=== PATIENT | female | born 1950 | race Caucasian/White ===

== ENCOUNTER 2019-08-20 20:47 | Emergency (ER) | payer MEDICARE ==
--- NOTE | 2019-08-20 21:12 | ER Document Report ---
ED General - General Chief Complaint: Fever Stated Complaint: FEVER, LETHARGY Time Seen by Provider: 08/20/19 21:00 Primary Care Provider: LUCIO ALMEIDA, OCCUPATIONAL THERAPY CO DIRECTOR [Primary Care Provider] - Follow up as needed Notes: Patient is a 68-year-old female that comes emergency department for chief complaint of altered mental status. She comes from home by EMS. EMS reports that normally patient is alert, oriented, conversational, however now she is only answering "yes and no questions" and these are inappropriate as well. Patient has a history of endometrial cancer with liver metastasis and patient has also has a history of ureteral stricture from the mass resulting in hydronephrosis and stents at [facility]. No daily medications are provided, no other medical history is provided, patient is reportedly on chemotherapy but no other medical history is given except that patient had a recorded temperature at home by family of 101 F although she had a normal temperature by EMS. Patient was given 500 cc lactated Ringer bolus by EMS. Patient is unable to give me any meaningful history. Recently filled medications per the system include Lamictal, gabapentin, oxybutynin, Compazine, Zofran. The system also indicates she has had a hysterectomy. TRAVEL OUTSIDE OF THE [place] IN LAST 30 DAYS: No - Related Data Allergies/Adverse Reactions: No Known Allergies Allergy (Verified 03/24/19 09:43) Past Medical History - General Information source: Patient - Social History Smoking Status: Unknown if Ever Smoked Frequency of alcohol use: None Drug Abuse: None Lives with: Family Family History: Reviewed & Not Pertinent Malignancy Medical History: Reports: Other - Endometrial cancer with liver metastasis Past Surgical History: Reports: Hx Hysterectomy Review of Systems - Review of Systems Constitutional: See HPI EENT: No symptoms reported Cardiovascular: No symptoms reported Respiratory: No symptoms reported Gastrointestinal: No symptoms reported Genitourinary: No symptoms reported Female Genitourinary: No symptoms reported Musculoskeletal: No symptoms reported Skin: No symptoms reported Hematologic/Lymphatic: No symptoms reported Neurological/Psychological: See HPI Physical Exam - Vital signs Vitals: Temp 98.8 F 08/20/19 20:47 - Notes Notes: GENERAL: Alert, interacts well. No acute distress. Patient does not appear to be in pain. She does follow directions. HEAD: Normocephalic, atraumatic. EYES: Pupils equal, round, and reactive to light. Extraocular movements intact. ENT: Oral mucosa moist, tongue midline. Oropharynx unremarkable. Airway patent. Nares patent, sinuses non-tender NECK: Full range of motion. Supple. Trachea midline. No lymphadenopathy. LUNGS: Clear to auscultation bilaterally, no wheezes, rales, or rhonchi. No re spiratory distress. Non-tender chest wall. Occasional mild cough noted. HEART: Borderline tachycardia, normal rhythm, no murmur ABDOMEN: Soft, non-tender. Non-distended. Bowel sounds present in all 4 quadrants. EXTREMITIES: Moves all 4 extremities spontaneously. No edema, normal radial and dorsalis pedis pulses bilaterally. No cyanosis. BACK: no cervical, thoracic, lumbar midline tenderness. No saddle anesthesia, normal distal neurovascular exam. Moves all extremities in full range of motion. NEUROLOGICAL: Alert and with clear speech but is not oriented to any events and is not oriented to place. Cranial nerves II through XII grossly intact. Strength 5/5 in all extremities. PSYCH: Calm SKIN: Warm, dry, normal turgor. No rashes or lesions noted. Course - Re-evaluation Re-evalutation: Patient is alert and follows directions but only is answering me "yes" and "no" answers. These are also bizarre, random, and inappropriate. She appears comfortable, she was initially tachycardic but after IV fluids this resolved. CBC does show leukocytosis, nonspecific. Patient also has normocytic anemia with no other recent comparison. Chemistry nonspecific. Urinalysis with possible infection, started on antibiotics. Chest x-ray unremarkable. CT of the brain shows 2 mass lesions, probably pain metastasis, there is vasogenic edema. Started on dexamethasone. Discussed with Dr. Wayne. Will speak with patient's oncologist and potentially transfer the patient. Will speak with family first. 08/20/19 23:55 I spoke with Felicita, patient's daughter. I discussed details of patient's work- up today. She states the patient has actually been intermittently confused and they attributed to the chemotherapy, they have noticed this more over the past week specifically. Patient is full code and does not have DNR paperwork. She states that patient's oncologist is Dr. August at [facility], we will contact them. 08/21/19 01:[address] Velazquez, oncologist space operations officer for Dr. August, he accepts for transfer, he recommends ED to ED transfer, he states patient will need brain radiation therapy. He does not have any additional recommendations at this time. I have already spoken to family about transfer to [facility] and they stated full understanding and agreement with this. 08/21/19 01:56 Reevaluated patient at bedside. She is sleeping peacefully but remains arousable. Vital signs unremarkable, tachycardia has not returned, no significant change from prior. Stable for transport. - Vital Signs Vital signs: Temp Pulse Resp BP Pulse Ox 98.4 F 18 144/70 H 100 08/21/19 01:07 08/21/19 02:00 08/21/19 02:00 08/21/19 02:00 - Laboratory Result Diagrams: 08/20/19 22:09 08/20/19 22:09 Laboratory results interpreted by me: 08/20/19 08/20/19 08/20/19 22:09 22:09 22:09 WBC 15.8 H RBC 3.32 L Hgb 8.9 L Hct 27.6 L MCH 26.7 L RDW 21.6 H Seg Neuts % (Manual) 85 H Band Neutrophils % 1 L Lymphocytes % (Manual) 7 L Abs Neuts (Manual) 13.6 H VBG pH 7.46 H Sodium 132.8 L AST 45 H Total Protein 5.6 L Albumin 2.9 L Urine Protein Urine Blood Urine Urobilinogen Leukocyte Esterase Rfl 08/20/19 22:09 WBC RBC Hgb Hct MCH RDW Seg Neuts % (Manual) Band Neutrophils % Lymphocytes % (Manual) Abs Neuts (Manual) VBG pH Sodium AST Total Protein Albumin Urine Protein 30 H Urine Blood MODERATE H Urine Urobilinogen 4.0 H Leukocyte Esterase Rfl SMALL H Discharge - Discharge Clinical Impression: Acute confusion, Vasogenic cerebral edema, Mass, brain Altered mental status Qualifiers: Altered mental status type: unspecified Qualified Code(s): R41.82 - Altered mental status, unspecified Condition: Stable Disposition: [facility] Referrals: LUCIO ALMEIDA, OCCUPATIONAL THERAPY CO DIRECTOR [Primary Care Provider] - Follow up as needed
[2019-08-20] MEDS ORDERED: NORMAL SALINE 1000 ML 1,000 ML IV ONE (21:18)
--- NOTE | 2019-08-20 21:52 | RADIOLOGY REPORT (SQ) ---
INDICATION: altered mental status. COMPARISON: None CORRELATION: None TECHNIQUE: Noncontrast spiral axial CT images were obtained from the skull base to vertex. This exam was performed according to our departmental dose-optimization program, which includes automated exposure control, adjustment of the mA and/or kV according to patient size and/or use of iterative reconstruction techniques. FINDINGS: There is no evidence of acute intracranial hemorrhage, midline shift, mass effect or mass lesion. Significant artifact is identified near the skull base. A low-attenuation area with the appearance of vasogenic edema is identified right frontal and left occipital. There appear to be underlying lesions within the brain parenchyma, poorly seen on noncontrast CT. There is no evidence of acute large territory infarct. Ventricles and extracerebral spaces are within normal limits, for age. The visualized paranasal sinuses are grossly clear. The orbits and eyeballs are unremarkable. The mastoid air cells are clear. Skull base and calvarium appear intact. IMPRESSION: Imaging is degraded by patient motion, with resultant artifact. The best possible images were obtained. At least 2 areas of vasogenic edema with apparent underlying mass lesions, poorly seen. Presumed metastatic disease. Advise MRI with and without gadolinium as the next imaging step in evaluation.
--- NOTE | 2019-08-20 21:57 | RADIOLOGY REPORT (SQ) ---
EXAM DESCRIPTION: X-ray, single view of the chest CLINICAL HISTORY: 68 years Female, cough, AMS COMPARISON: None. FINDINGS: Lungs: Lung volumes are low and there is minimal volume loss in the left costophrenic angle. Right chest port is in place with the tip of the catheter in the mid right atrium. No pneumothorax. Mediastinum: Heart size appears mildly enlarged but this may be secondary to AP technique. Mediastinum is unremarkable. Bones: Osseous structures are normal. IMPRESSION: Low lung volumes with parenchymal volume loss in the left lung base which may represent subsegmental atelectasis.
[2019-08-20] MEDS ORDERED: DEXAMETHASONE SOD PHOS INJ 10 MG/1 ML VIAL IV ONE (21:58)
[2019-08-20 22:41] LABS: VENOUS BLOOD BASE EXCESS 3.4 mmol/L; VENOUS BLOOD HCO3 27.5 mmol/L (20-32); VENOUS BLOOD PCO2 39.6 mmHg (35-63); VENOUS BLOOD PH 7.46 (7.30-7.42)
[2019-08-20 22:42] LABS: HEMATOCRIT 27.6 % (36.0-47.0); HEMOGLOBIN 8.9 g/dL (12.0-15.5); MEAN CORPUSCULAR HEMOGLOBIN 26.7 pg (27.0-33.4); MEAN CORPUSCULAR HGB CONC 32.1 g/dL (32.0-36.0); MEAN CORPUSCULAR VOLUME 83 fl (80-97); PLATELET COUNT 346 10^3/uL (150-450); RED BLOOD COUNT 3.32 10^6/uL (3.72-5.28); RED CELL DISTRIBUTION WIDTH 21.6 % (11.5-14.0); WHITE BLOOD COUNT 15.8 10^3/uL (4.0-10.5)
[2019-08-20 22:48] LABS: PROTHROMBIN TIME 15.3 SEC (11.4-15.4)
[2019-08-20 22:49] LABS: PARTIAL THROMBOPLASTIN TIME 34.6 SEC (23.5-35.8)
[2019-08-20 23:01] LABS: ABSOLUTE LYMPHOCYTES# (MANUAL) 1.1 10^3/uL (0.5-4.7); ABSOLUTE MONOCYTES # (MANUAL) 1.1 10^3/uL (0.1-1.4); ALBUMIN 2.9 g/dL (3.5-5.0); ALKALINE PHOSPHATASE 73 U/L (38-126); ANION GAP 7 (5-19); ASPARTATE AMINO TRANSFERASE 45 U/L (14-36); BAND NEUTROPHILS % (MANUAL) 1 % (3-5); BASOPHILS % (MANUAL) 0 % (0-2); BILIRUBIN,DIRECT 0.1 mg/dL (0.0-0.4); BILIRUBIN,TOTAL 0.7 mg/dL (0.2-1.3); BLOOD UREA NITROGEN 18 mg/dL (7-20); CALCIUM 8.5 mg/dL (8.4-10.2); CARBON DIOXIDE 26 mmol/L (22-30); CHLORIDE 100 mmol/L (98-107); EOSINOPHILS % (MANUAL) 0 % (0-6); GLUCOSE 108 mg/dL (75-110); LYMPHOCYTES % (MANUAL) 7 % (13-45); MONOCYTES % (MANUAL) 7 % (3-13); POTASSIUM 3.9 mmol/L (3.6-5.0); SEGMENTED NEUTROPHILS % (MAN) 85 % (42-78); TOTAL CELLS COUNTED 100; TOTAL PROTEIN 5.6 g/dL (6.3-8.2)
[2019-08-20 23:08] LABS: ANISOCYTOSIS 3+; OVALOCYTES SLIGHT; PLATELET COMMENT ADEQUATE; POIKILOCYTOSIS SLIGHT; TEAR DROP CELLS SLIGHT
[2019-08-20 23:44] LABS: APPEARANCE,URINE SLIGHTLY-CLOUDY; BILIRUBIN,URINE NEGATIVE (NEGATIVE); COLOR,URINE YELLOW; GLUCOSE, URINE NEGATIVE (NEGATIVE); KETONES,URINE NEGATIVE (NEGATIVE); PROTEIN,URINE 30 mg/dL (NEGATIVE); URINE SPECIFIC GRAVITY 1.018
[2019-08-20] MEDS ORDERED: CEFTRIAXONE 1 GM/D5W RTU 1 GM/50 ML RTUPB IV ONE (23:52)
[2019-08-21 02:14] VITALS: BP 144/70
--- NOTE | 2019-08-21 08:01 | EKG REPORT ---
SEVERITY:- ABNORMAL ECG - SINUS TACHYCARDIA PROBABLE LVH WITH SECONDARY REPOL ABNRM CONSIDER ANTERIOR INFARCT : Confirmed by: Nicolette Blake MD 21-Aug-2019 08:00:38
== END 2019-08-21 02:54 | disposition short-term general hospital (02) ==
LOC: ER 20:47
DX: G93.9 Disorder of brain, unspecified (principal); G93.6 Cerebral edema; C54.1 Malignant neoplasm of endometrium; C78.7 Secondary malignant neoplasm of liver and intrahepatic bile duct; Z79.899 Other long term (current) drug therapy; D64.9 Anemia, unspecified; R41.0 Disorientation, unspecified
CPT/HCPCS: 93005; 99285; 96361; 96375; 96365; 36415; 87040; 82140; 83605; 85025; 85610; 85730; 80053; 81001; 84484; 82803; 71045; 70450; 93010; J7030; J0696; J1100